=== PATIENT | male | born 1965 | race Caucasian/White ===

== ENCOUNTER → 2024-04-02 | Outpatient (CLI) | payer OTHER ==
[2024-04-02 14:23] LABS: BASO # 0.1 10^3/uL (0.0-0.2); BASO % 0.8 % (0.0-1.0); EOS # 0.4 10^3/uL (0.0-0.5); EOS % 6.7 % (0.0-3.0); HEMATOCRIT 42.2 % (42.0-52.0); HEMOGLOBIN 13.7 g/dl (13.5-17.5); LYMPH # 2.6 10^3/uL (1.5-5.0); LYMPH % 40.3 % (24.0-44.0); MEAN CORPUSCULAR HGB CONC 32.5 g/dl (32.0-36.5); MEAN CORPUSCULAR VOLUME 89.2 fl (80.0-96.0); MONO # 0.6 10^3/uL (0.0-0.8); MONO % 9.8 % (2.0-8.0); NEUTROPHILS # 2.7 10^3/uL (1.5-8.5); NEUTROPHILS % 42.2 % (36.0-66.0); PLATELET COUNT, AUTOMATED 342 10^3/uL (150-450); RED BLOOD COUNT 4.73 10^6/uL (4.30-6.10); WHITE BLOOD COUNT 6.4 10^3/uL (4.0-10.0)
[2024-04-02 14:46] LABS: BACTERIA, URINE AUTO NEGATIVE (NEGATIVE); MUCUS, URINE SMALL (NEGATIVE); RBC, URINE AUTO TNTC /HPF (0-3); SQUAMOUS EPITHELIAL CELL UR AU 0 /HPF (0-6); WBC, URINE AUTO 3 /HPF (0-3)
[2024-04-02 14:55] LABS: ALBUMIN 3.6 G/DL (3.2-5.2); ALKALINE PHOSPHATASE 106 U/L (46-116); ALT/SGPT 25 U/L (7.0-40); AST/SGOT 21 U/L (<34); BILIRUBIN,TOTAL 0.3 MG/DL (0.3-1.2); BLOOD UREA NITROGEN 17 MG/DL (9-23); CALCIUM LEVEL 9.9 MG/DL (8.3-10.6); CARBON DIOXIDE LEVEL 32 MMOL/L (20-31); CHLORIDE LEVEL 104 MMOL/L (98-107); CREATININE FOR GFR 0.85 MG/DL (0.70-1.30); GLOMERULAR FILTRATION RATE > 60.0 (>49); GLUCOSE, FASTING 92 MG/DL (74-106); POTASSIUM SERUM 4.7 MMOL/L (3.5-5.1); SODIUM LEVEL 140 MMOL/L (136-145); TOTAL PROTEIN 7.9 G/DL (5.7-8.2)
[2024-04-02 15:15] LABS: HEPATITIS B SURFACE ANTIGEN NEGATIVE (NEGATIVE)
[2024-04-02 15:36] LABS: HEPATITIS B CORE ANTIBODY IGM NEGATIVE (NEGATIVE); HEPATITIS C VIRUS ABY INDEX < 0.02 INDEX (<0.8)
== END ==
LOC: M LAB 13:30
PROVIDERS: ATTEND Nurse Practitioner Adult Health
DX: F11.21 Opioid dependence, in remission (principal)

== ENCOUNTER 2024-04-05 20:32 | Emergency (ER) | payer OTHER ==
[~2024-04-05] VITALS: Ht 170.2 cm; Wt 91.8 kg
[2024-04-05 21:20] LABS: BASO # 0.1 10^3/uL (0.0-0.2); BASO % 0.4 % (0.0-1.0); EOS # 0.3 10^3/uL (0.0-0.5); EOS % 2.9 % (0.0-3.0); HEMATOCRIT 41.7 % (42.0-52.0); LYMPH # 1.9 10^3/uL (1.5-5.0); LYMPH % 16.3 % (24.0-44.0); MEAN CORPUSCULAR HEMOGLOBIN 29.9 pg (27.0-33.0); MEAN CORPUSCULAR HGB CONC 33.6 g/dl (32.0-36.5); MEAN CORPUSCULAR VOLUME 89.1 fl (80.0-96.0); MONO # 0.9 10^3/uL (0.0-0.8); MONO % 7.5 % (2.0-8.0); NEUTROPHILS # 8.3 10^3/uL (1.5-8.5); NEUTROPHILS % 72.5 % (36.0-66.0); PLATELET COUNT, AUTOMATED 317 10^3/uL (150-450); RED BLOOD COUNT 4.68 10^6/uL (4.30-6.10); WHITE BLOOD COUNT 11.4 10^3/uL (4.0-10.0)
[2024-04-05] MEDS: KETOROLAC 30 MG/ML 1ML VIAL IV ONE (21:30)
[2024-04-05] MEDS: NS 1,000 ML IV ONE (21:31)
[2024-04-05 21:50] LABS: CK-MB VALUE MASS < 1.0 NG/ML (<3.6); LIPASE 29 U/L (12-53)
[2024-04-05 21:52] LABS: ALBUMIN 3.6 G/DL (3.2-5.2); ALKALINE PHOSPHATASE 101 U/L (46-116); ALT/SGPT 20 U/L (7.0-40); AST/SGOT 19 U/L (<34); BILIRUBIN,DIRECT 0.1 MG/DL (<0.4); BILIRUBIN,TOTAL 0.5 MG/DL (0.3-1.2); BLOOD UREA NITROGEN 22 MG/DL (9-23); CALCIUM LEVEL 9.3 MG/DL (8.3-10.6); CARBON DIOXIDE LEVEL 29 MMOL/L (20-31); CHLORIDE LEVEL 103 MMOL/L (98-107); CREATININE FOR GFR 1.41 MG/DL (0.70-1.30); GLOMERULAR FILTRATION RATE 54.6 (>49); GLUCOSE, FASTING 108 MG/DL (74-106); POTASSIUM SERUM 4.3 MMOL/L (3.5-5.1); SODIUM LEVEL 139 MMOL/L (136-145); TOTAL PROTEIN 7.9 G/DL (5.7-8.2)
[2024-04-05 21:55] LABS: CPK CREATINE PHOSPHOKINASE 82 U/L (46-171); MB/CK RELATIVE INDEX 1.21 (< OR =4)
[2024-04-05] MEDS ORDERED: ISOVUE-370 76% 100ML VIAL As Ordered ONE (22:42)
[2024-04-05 23:06] LABS: CK-MB VALUE MASS < 1.0 NG/ML (<3.6)
[2024-04-05 23:28] LABS: CPK CREATINE PHOSPHOKINASE 76 U/L (46-171); MB/CK RELATIVE INDEX 1.31 (< OR =4)
[2024-04-06] MEDS ORDERED: KETO10TAB PO (00:07)
[2024-04-06] MEDS ORDERED: ONDA-282 PO (00:07)
[2024-04-06] MEDS ORDERED: CEPH500C PO (00:07)
[2024-04-06] MEDS ORDERED: FLOM0.4C39 PO (00:08)
[2024-04-06] MEDS: TAMSULOSIN 0.4 MG CAP PO ONE (00:21)
[2024-04-06 00:25] VITALS: BP 117/65; TEMP 98.8; O2SAT 93
== END 2024-04-06 00:35 | disposition home or self-care (01) ==
LOC: M ED 20:32
DX: N20.1 Calculus of ureter (principal); F17.200 Nicotine dependence, unspecified, uncomplicated; M54.50 Low back pain, unspecified; Z87.442 Personal history of urinary calculi; Z79.83 Long term (current) use of bisphosphonates; Z79.2 Long term (current) use of antibiotics; Z79.899 Other long term (current) drug therapy
CPT/HCPCS: 74177; 80048; 80076; 81001; 82550; 82553; 83605; 83690; 84484; 85025; 93005; 93041; 96361; 96374; 99285; J1885; Q9967

== ENCOUNTER → 2024-05-12 | Outpatient (CLI) | payer OTHER ==
[~2024-05-12] MED LIST: CEPH500C PO; FLOM0.4C39 PO; KETO10TAB PO; ONDA-282 PO
== END ==
LOC: M RAD 13:15
PROVIDERS: ATTEND Specialist
DX: N20.0 Calculus of kidney (principal)

== ENCOUNTER 2024-11-03 07:55 | Emergency (ER) | payer OTHER ==
[2024-11-03] MEDS ORDERED: SUBO8MIS SL (08:08)
[2024-11-03 08:31] LABS: BASO % 0.4 % (0.0-1.0); EOS % 0.4 % (0.0-3.0); HEMATOCRIT 39.9 % (42.0-52.0); HEMOGLOBIN 13.5 g/dl (13.5-17.5); LYMPH % 13.2 % (24.0-44.0); MEAN CORPUSCULAR HEMOGLOBIN 29.2 pg (27.0-33.0); MEAN CORPUSCULAR HGB CONC 33.8 g/dl (32.0-36.5); MEAN CORPUSCULAR VOLUME 86.2 fl (80.0-96.0); MONO # 0.8 10^3/uL (0.0-0.8); MONO % 11.3 % (2.0-8.0); NEUTROPHILS # 5.4 10^3/uL (1.5-8.5); NEUTROPHILS % 74.4 % (36.0-66.0); PLATELET COUNT, AUTOMATED 242 10^3/uL (150-450); RED BLOOD COUNT 4.63 10^6/uL (4.30-6.10); WHITE BLOOD COUNT 7.3 10^3/uL (4.0-10.0)
[2024-11-03] MEDS: ONDANSETRON 4MG 2ML VIAL IV ONE (08:56)
[2024-11-03 09:03] LABS: KETONE, URINE AUTO RFX TRACE mg/dL (NEGATIVE); LEUKOCYTE ESTERASE UR AUTO RFX NEGATIVE (NEGATIVE); MUCUS, URINE RFX MODERATE (NEGATIVE); NITRITE, URINE AUTO RFX NEGATIVE (NEGATIVE); RBC, URINE AUTO RFX 2 /HPF (0-3); SQUAM EPITHELIAL CELL UR AURFX 0 /HPF (0-6); WBC, URINE AUTO RFX 2 /HPF (0-3)
[2024-11-03 09:05] LABS: LIPASE 26 U/L (12-53)
[2024-11-03 09:07] LABS: ALBUMIN 3.2 G/DL (3.2-5.2); ALKALINE PHOSPHATASE 82 U/L (40-129); ALT/SGPT 41 U/L (7.0-40); AST/SGOT 43 U/L (<34); BILIRUBIN,DIRECT 0.2 MG/DL (<0.4); BILIRUBIN,TOTAL 0.5 MG/DL (0.3-1.2); BLOOD UREA NITROGEN 14 MG/DL (9-23); CALCIUM LEVEL 8.4 MG/DL (8.3-10.6); CARBON DIOXIDE LEVEL 28 MMOL/L (20-31); CHLORIDE LEVEL 101 MMOL/L (98-107); CREATININE FOR GFR 0.97 MG/DL (0.70-1.30); GLOMERULAR FILTRATION RATE > 60.0 (>49); GLUCOSE, FASTING 141 MG/DL (74-106); POTASSIUM SERUM 4.1 MMOL/L (3.5-5.1); SODIUM LEVEL 138 MMOL/L (136-145); TOTAL PROTEIN 8.2 G/DL (5.7-8.2)
[2024-11-03] MEDS: NS (Normal Saline) 0.9% 1,000 ML IV ONE (12:32)
[2024-11-03 14:00] VITALS: BP 149/65; TEMP 99.9; O2SAT 96
== END 2024-11-03 14:28 | disposition home or self-care (01) ==
LOC: EDBD 07:55 → M ED 07:55
DX: N20.2 Calculus of kidney with calculus of ureter (principal); N21.0 Calculus in bladder; Z87.442 Personal history of urinary calculi; K76.0 Fatty (change of) liver, not elsewhere classified; K76.89 Other specified diseases of liver; K44.9 Diaphragmatic hernia without obstruction or gangrene; I70.90 Unspecified atherosclerosis; K86.89 Other specified diseases of pancreas; M16.0 Bilateral primary osteoarthritis of hip; F11.20 Opioid dependence, uncomplicated; F17.200 Nicotine dependence, unspecified, uncomplicated; Z79.899 Other long term (current) drug therapy
CPT/HCPCS: 74176; 80048; 80076; 81001; 83690; 85025; 87486; 87581; 87633; 87798; 96361; 96374; 99284; J2405

== ENCOUNTER → 2024-11-11 | Outpatient (REF) ==
[~2024-11-11] MED LIST changes: +SUBO8MIS SL
== END ==
LOC: M RAD 10:46
PROVIDERS: ATTEND Internal Medicine
DX: R52 Pain, unspecified (principal)

== ENCOUNTER → 2025-01-12 | Outpatient (CLI) | payer OTHER | LOC: M RAD 12:30 | PROVIDERS: ATTEND Nurse Practitioner Family | DX: N20.0 Calculus of kidney (principal) ==

== ENCOUNTER → 2025-01-28 | Outpatient (CLI) | payer OTHER ==
[~2025-01-28] MED LIST changes: -FLOM0.4C39 PO; +TAMS-18 PO
[2025-01-28 11:23] LABS: APPEARANCE, URINE CLEAR (CLEAR); BACTERIA, URINE AUTO NEGATIVE (NEGATIVE); BILIRUBIN, URINE AUTO NEGATIVE (NEGATIVE); BLOOD, URINE BLOOD NEGATIVE (NEGATIVE); COLOR, URINE YELLOW (YELLOW); GLUCOSE, URINE (UA) AUTO NEGATIVE (NEGATIVE); KETONE, URINE AUTO NEGATIVE (NEGATIVE); LEUKOCYTE ESTERASE, URINE AUTO NEGATIVE (NEGATIVE); MUCUS, URINE SMALL (NEGATIVE); NITRITE, URINE AUTO NEGATIVE (NEGATIVE); PROTEIN, URINE AUTO NEGATIVE (NEGATIVE); RBC, URINE AUTO 0 /HPF (0-3); SPECIFIC GRAVITY URINE AUTO 1.021 (1.002-1.035); SQUAMOUS EPITHELIAL CELL UR AU 0 /HPF (0-6); UROBILINOGEN, URINE AUTO 0.2 mg/dL (0.0-2.0); WBC, URINE AUTO 1 /HPF (0-3)
[2025-01-28 11:25] LABS: HEMATOCRIT 37.7 % (42.0-52.0); HEMOGLOBIN 12.5 g/dl (13.5-17.5); MEAN CORPUSCULAR HEMOGLOBIN 29.8 pg (27.0-33.0); MEAN CORPUSCULAR HGB CONC 33.2 g/dl (32.0-36.5); MEAN CORPUSCULAR VOLUME 89.8 fl (80.0-96.0); PLATELET COUNT, AUTOMATED 319 10^3/uL (150-450); WHITE BLOOD COUNT 6.9 10^3/uL (4.0-10.0)
[2025-01-28 11:43] LABS: BLOOD UREA NITROGEN 18 MG/DL (9-23); CALCIUM LEVEL 9.4 MG/DL (8.3-10.6); CARBON DIOXIDE LEVEL 30 MMOL/L (20-31); CHLORIDE LEVEL 103 MMOL/L (98-107); CREATININE FOR GFR 0.81 MG/DL (0.70-1.30); GLOMERULAR FILTRATION RATE > 90.0 (>49); GLUCOSE, FASTING 125 MG/DL (74-106); POTASSIUM SERUM 4.3 MMOL/L (3.5-5.1); SODIUM LEVEL 141 MMOL/L (136-145)
== END ==
LOC: M LAB 10:46
PROVIDERS: ATTEND Nurse Practitioner Family
DX: Z01.818 Encounter for other preprocedural examination (principal)

== ENCOUNTER → 2025-01-29 | Outpatient (CLI) | payer OTHER | LOC: M RAD 12:58 | DX: Z01.811 Encounter for preprocedural respiratory examination (principal); Z01.810 Encounter for preprocedural cardiovascular examination; R00.1 Bradycardia, unspecified ==

== ENCOUNTER 2025-02-04 06:20 | Day surgery (SDC) | payer OTHER ==
[~2025-02-04] VITALS: Ht 170.2 cm; Wt 91.2 kg
[~2025-02-04 06:20] MED LIST changes: +DICL100G10 TOP; +LAMI25TA PO; +PRAZ5CAP PO
[2025-02-04] MEDS ORDERED: ONDANSETRON 4MG 2ML VIAL As Ordered ONE (07:01)
[2025-02-04] MEDS ORDERED: propofoL 200 MG/20 ML VIAL As Ordered ONE (07:01)
[2025-02-04] MEDS ORDERED: LIDOCAINE 2% 100MG/5ML SDV (FOR ANES.) As Ordered ONE (07:01)
[2025-02-04] MEDS ORDERED: ACETAMINOPHEN 1000MG/100ML IV BAG As Ordered ONE (07:01)
[2025-02-04] MEDS ORDERED: fentaNYL 100 MCG/2 ML INJECTION As Ordered ONE (07:02)
[2025-02-04] MEDS ORDERED: LR 1,000 ML IV SCH (07:20)
[2025-02-04] MEDS: ceFAZolin SOD 2 GM IV ONCE IV ONE (07:34)
[2025-02-04] MEDS ORDERED: KETAMINE HCL 200MG/20ML VIAL As Ordered ONE (07:41)
[2025-02-04] MEDS ORDERED: MIDAZOLAM INJ 2MG/2ML VIAL As Ordered ONE (07:43)
[2025-02-04] MEDS ORDERED: OXYC1TAB23 PO (08:06)
[2025-02-04] MEDS ORDERED: TAMS-18 PO (08:06)
[2025-02-04] MEDS ORDERED: oxyCODONE 5MG TAB PO PRN (08:20)
[2025-02-04] MEDS ORDERED: ONDANSETRON 4MG 2ML VIAL IV PRN (08:20)
[2025-02-04] MEDS ORDERED: fentaNYL 100 MCG/2 ML INJECTION IV PRN (08:20)
[2025-02-04] MEDS ORDERED: MORPHINE 2 MG/ML 1ML VIAL IV PRN (08:20)
[2025-02-04] MEDS ORDERED: PERCOCET 5MG/325MG TAB PO PRN (08:40)
[2025-02-04 09:25] VITALS: BP 115/59; TEMP 97.7; O2SAT 97
== END 2025-02-04 09:47 | disposition home or self-care (01) ==
LOC: M SDC 06:20
PROVIDERS: ATTEND Urology
DX: N20.0 Calculus of kidney (principal); Z87.442 Personal history of urinary calculi
CPT/HCPCS: 50590; 74018; J0131; J0690; J2250; J2405

== ENCOUNTER → 2025-02-24 | Outpatient (CLI) | payer OTHER ==
[~2025-02-24] MED LIST changes: +OXYC1TAB23 PO
== END ==
LOC: M RAD 11:12
PROVIDERS: ATTEND Nurse Practitioner Family
DX: N20.0 Calculus of kidney (principal)

== ENCOUNTER 2025-05-19 11:04 | Emergency (ER) | payer OTHER ==
[~2025-05-19] VITALS: Ht 170.2 cm; Wt 84.8 kg
[2025-05-19 11:58] LABS: BASO # 0.1 10^3/uL (0.0-0.2); BASO % 0.6 % (0.0-1.0); EOS # 0.3 10^3/uL (0.0-0.5); EOS % 3.6 % (0.0-3.0); LYMPH # 2.5 10^3/uL (1.5-5.0); LYMPH % 27.8 % (24.0-44.0); MONO # 0.7 10^3/uL (0.0-0.8); MONO % 7.5 % (2.0-8.0); NEUTROPHILS # 5.4 10^3/uL (1.5-8.5); NEUTROPHILS % 60.3 % (36.0-66.0); PLATELET COUNT, AUTOMATED 294 10^3/uL (150-450)
[2025-05-19 12:18] LABS: ALT/SGPT 21 U/L (7.0-40); AST/SGOT 26 U/L (<34); CALCIUM LEVEL 9.6 MG/DL (8.3-10.6); CARBON DIOXIDE LEVEL 28 MMOL/L (20-31); CHLORIDE LEVEL 104 MMOL/L (98-107); CREATININE FOR GFR 0.78 MG/DL (0.70-1.30); GLOMERULAR FILTRATION RATE > 90.0 (>49); POTASSIUM SERUM 4.3 MMOL/L (3.5-5.1); SODIUM LEVEL 142 MMOL/L (136-145)
[2025-05-19] MEDS: MECLIZINE 25 MG TABLET PO ONE (16:59)
[2025-05-19 17:06] LABS: MAGNESIUM LEVEL 1.6 MG/DL (1.8-2.4)
[2025-05-19 17:11] LABS: FREE T4 1.45 NG/DL (0.89-1.76)
[2025-05-19] MEDS: MAG SULF 1GM/100ML (MAG RUN) 1 GM in IV 1 EA IV ONE (17:48)
[2025-05-19] MEDS ORDERED: MECL-209 PO (19:42)
[2025-05-19 20:12] VITALS: BP 150/68; TEMP 97.8; O2SAT 98
== END 2025-05-19 20:14 | disposition home or self-care (01) ==
LOC: M ED 11:04
DX: R42 Dizziness and giddiness (principal); E83.42 Hypomagnesemia; R00.1 Bradycardia, unspecified; Z79.899 Other long term (current) drug therapy
CPT/HCPCS: 70450; 80053; 83735; 84439; 84443; 85025; 93005; 96374; 99285; J3475